=== PATIENT | female | born 1975 | race African-American/Black ===

== ENCOUNTER 2017-04-20 03:14 | Emergency (ER) | payer OTHER ==
[2017-04-20 03:36] VITALS: BMI 23.8
[2017-04-20 03:57] LABS: URINE APPEARANCE CLEAR; URINE BILIRUBIN NEGATIVE (NEGATIVE); URINE BLOOD 2+ (NEGATIVE); URINE COLOR STRAW; URINE GLUCOSE (UA) NEGATIVE (NEGATIVE); URINE KETONE NEGATIVE (NEGATIVE); URINE LEUK ESTERASE NEGATIVE (NEGATIVE); URINE NITRITE NEGATIVE (NEGATIVE); URINE PROTEIN NEGATIVE (NEGATIVE); URINE UROBILINOGEN NEGATIVE mg/dL (0.2-1.0)
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
[2017-04-20 04:07] LABS: URINE MARIJUANA THC POSITIVE ng/ml (CUTOFF=50)
[2017-04-20 04:23] LABS: BASOPHIL 0.6 % (0-2.0); EOSINOPHIL 0.2 % (0-4.5); MCH 29.2 pg (25.7-33.7); MCHC 34.2 g/dl (32.0-36.0); MEAN CELL VOLUME 85.2 fl (80-96); MEAN PLT VOLUME 7.3 fl (7.5-11.1); NEUTROPHILS 73.2 % (42.8-82.8); PLATELET COUNT 256 K/MM3 (134-434); RDW 15.1 % (11.6-15.6); WHITE BLOOD COUNT 10.6 K/mm3 (4.0-10.0)
[2017-04-20 04:35] LABS: INR 1.18 (0.82-1.09)
[2017-04-20 04:46] LABS: ALBUMIN 4.3 g/dl (3.4-5.0); ANION GAP 7 (8-16); BILIRUBIN,TOTAL 0.6 mg/dL (0.2-1.0); CALCIUM 8.8 mg/dL (8.5-10.1); CO2 25 mmol/L (21-32); CREATININE 0.8 mg/dL (0.55-1.02); GLUCOSE,RANDOM 92 mg/dL (74-106); MAGNESIUM 2.1 mg/dL (1.8-2.4); SGOT/AST 29 U/L (15-37); SGPT/ALT 20 U/L (12-78); TOT PROT 7.6 g/dl (6.4-8.2)
[2017-04-20 04:49] LABS: ALK PHOS 73 U/L (45-117); CPK 636 IU/L (26-192); TROPONIN I < 0.02 ng/ml (0.00-0.05)
[2017-04-20 04:58] LABS: ARTERIAL BLD GAS O2 SATURATION 80.1 % (90-98.9); ARTERIAL BLOOD GAS BASE EXCESS 0.1 meq/l (-2-2); ARTERIAL BLOOD GAS HCO3 23.1 meq/L (22-26); ARTERIAL BLOOD GAS PO2 41.1 mmHg (80-100)
[2017-04-20 04:59] LABS: ALLENS TEST POSITIVE; ART PUNCT SITE RIGHT RADIAL; LPM/O2% 21%; METHEMOGLOBIN 0.6 % (0.4-1.5); PT. ON O2? NO; TYPE OF O2 ROOM AIR
[2017-04-20] MEDS ORDERED: POTASSIUM CHLORIDE TABS 20 MEQ TABLET.ER (FP) PO ONE ×2 (04:59→05:35)
[2017-04-20 05:00] LABS: ARTERIAL BLOOD GAS pH 7.45 (7.35-7.45)
[2017-04-20 05:02] LABS: SALICYLATE < 4.0 mg/dl (0.0-30.0)
[2017-04-20 08:22] VITALS: BP 152/92; PULSE 79; TEMP 98
--- NOTE | 2017-04-20 10:52 | EKG ---
Test Reason : Blood Pressure : / mmHG Vent. Rate : 066 BPM Atrial Rate : 066 BPM P-R Int : 080 ms QRS Dur : 084 ms QT Int : 420 ms P-R-T Axes : 006 071 044 degrees QTc Int : 440 ms POOR DATA QUALITY, INTERPRETATION MAY BE ADVERSELY AFFECTED SINUS RHYTHM WITH SHORT NV OTHERWISE NORMAL ECG NO PREVIOUS ECGS AVAILABLE Confirmed by DIANE CAMPUZANO MD ([id number]) on 04/20/2017 10:51:56 AM Referred By: Confirmed By:DIANE CAMPUZANO MD
== END 2017-04-20 08:21 | disposition left against medical advice (07) ==
LOC: JER 03:14
DX: R07.89 Other chest pain (principal); I10 Essential (primary) hypertension; F17.210 Nicotine dependence, cigarettes, uncomplicated
CPT/HCPCS: 36415; 36600; 80053; 80307; 81003; 81015; 82375; 82553; 82803; 83050; 83735; 83880; 84484; 84703; 85025; 85610; 93005; 93010; 99284-25

== ENCOUNTER 2017-04-20 13:44 | Emergency (ER) | payer OTHER ==
[2017-04-20 14:02] VITALS: BMI 24.7
--- NOTE | 2017-04-20 14:43 | PDOC ---
History of Present Illness - General History Source: Patient Exam Limitations: No Limitations - History of Present Illness Initial Comments: 04/20/17 16:26 The patient is a 41 year old female with significant past medical history of hypertension who presents to the ED for lower back pain complaint. Patient states that she fell a week and half ago and was evaluated in [facility] ER and was dx with lumbar sprain. Patient states that the lower back pain is intermittent, with change in intensity. She also reports 1 episode of vomiting today. Patient was seen at [facility] earlier this morning and eloped before being evaluated by psych. Patient presents with a different complaint this afternoon in comparison to this mornings complaint of chest pain and left sided weakness. Patient states that she fell a w Patient states that she is concerned for her safety and feels as if she is not in her right mind. Patient states that her and her daughter have been smoking marijuana with her daughter. She states the last time she smoked was today. She also reports concerns about smoking K2 marijuana since she has been hearing rumors from her dealers that her stuff may be K2. Patient also states that she is concerned about her safety regarding at her apartment she notes that she has been smelling weird gas and is concerned for her well being. Patient is very suspicious and paranoid. The patient denies fever, chills, cough, abdominal pain, and diarrhea. Allergies: NKDA Social History: Current smoker (ppd). Past Surgical History: None reported PCP: n/a <Aislinn Carvajal - Last Filed: 04/20/17 16:43> <Florinda Tapia - Last Filed: 04/20/17 19:08> - General History Source: Patient Exam Limitations: No Limitations <Alena Armstrong - Last Filed: 04/22/17 20:27> - General Chief Complaint: Blood Pressure Problem Stated Complaint: HTN Time Seen by Provider: 04/20/17 14:41 Past History <Aislinn Carvajal - Last Filed: 04/20/17 16:43> <Florinda Tapia - Last Filed: 04/20/17 19:08> - Past Medical History HTN: Yes Psychiatric Problems: Yes - Psycho/Social/Smoking Cessation Hx Anxiety: No Suicidal Ideation: No Smoking History: Current every day smoker Have you smoked in the past 12 months: Yes Number of Cigarettes Smoked Daily: 10 Information on smoking cessation initiated: No Hx Alcohol Use: No Drug/Substance Use Hx: Yes (marijuana.) Substance Use Type: None <Alena Armstrong - Last Filed: 04/22/17 20:27> - Past Medical History Allergies/Adverse Reactions: Allergies Allergy/AdvReac Type Severity Reaction Status Date / Time No Known Allergies Allergy Verified 04/20/17 13:56 Home Medications: Ambulatory Orders Acetaminophen W/ Codeine #3 [Tylenol # 3 -] 1 - 2 tab PO Q6H PRN 04/20/17 Amlodipine Besylate [Norvasc -] 5 mg PO DAILY 04/20/17 Ibuprofen [Motrin -] 600 mg PO TID PRN 04/20/17 Review of Systems - Review of Systems Able to Perform ROS?: Yes Comments:: 04/20/17 16:27 GENERAL/CONSTITUTIONAL: No: fever, chills, weakness, loss of appetite. HEAD, EYES, EARS, NOSE AND THROAT: No: change in vision, ear pain, discharge, sore throat, throat swelling. CARDIOVASCULAR: No: chest pain, lightheadedness, palpitations, syncope RESPIRATORY: No: cough, shortness of breath, wheezing, hemoptysis, stridor. GASTROINTESTINAL: No: nausea, vomiting, abdominal cramping, diarrhea, rectal bleeding, constipation. GENITOURINARY: No: dysuria, hematuria, frequency, urgency, flank pain. MUSCULOSKELETAL: +back pain. No: neck pain, joint pain, muscle swelling or pain SKIN: No: lesions, pallor, rash or easy bruising. NEUROLOGIC: No: headache, vertigo, paresthesias, weakness ENDOCRINE: No: unexplained weight gain or loss HEMATOLOGIC/LYMPHATIC: No: anemia, easy bleeding, swelling nodes <Aislinn Carvajal - Last Filed: 04/20/17 16:43> *Physical Exam - Vital Signs Last Vital Signs Temp Pulse Resp BP Pulse Ox 78 18 198/120 100 04/20/17 13:56 04/20/17 13:56 04/20/17 13:56 04/20/17 13:56 - Physical Exam Comments: 04/20/17 16:43 GENERAL: The patient is in no acute distress. HEAD: Normal with no signs of trauma. EYES: PERRLA, EOMI, sclera anicteric, conjunctiva clear. ENT: Ears normal, nares patent, oropharynx clear without exudates. Moist mucous membranes. NECK: Normal range of motion, supple without lymphadenopathy, JVD, or masses. LUNGS: Breath sounds equal, clear to auscultation bilaterally. No wheezes, and no crackles. HEART:Regular rate and rhythm, normal S1 and S2 without murmur, rub or gallop. ABDOMEN: Soft, nontender, normoactive bowel sounds. No guarding, no rebound. EXTREMITIES: Normal range of motion, no edema. No clubbing or cyanosis. No erythema, or tenderness. NEUROLOGICAL: Cranial nerves II through XII grossly intact. Normal speech. No focal neurological deficits. MUSCULOSKELETAL: No midline tenderness. Back nontender to palpation, no CVA tenderness SKIN: Warm, Dry, normal turgor, no rashes or lesions noted. <Aislinn Carvajal - Last Filed: 04/20/17 16:43> - Vital Signs Last Vital Signs Temp Pulse Resp BP Pulse Ox 98.6 F 64 18 169/101 100 04/20/17 17:46 04/20/17 17:46 04/20/17 13:56 04/20/17 17:46 04/20/17 17:46 <Florinda Tapia - Last Filed: 04/20/17 19:08> - Vital Signs Last Vital Signs Temp Pulse Resp BP Pulse Ox 78 18 198/120 100 04/20/17 13:56 04/20/17 13:56 04/20/17 13:56 04/20/17 13:56 <Alena Armstrong - Last Filed: 04/22/17 20:27> Heart Score/ECG Review #1 ECG reviewed & interpreted by me at: 16:10 04/20/17 16:10 Twelve-lead EKG was performed and reviewed by me. There is normal sinus rhythm with a normal rate of 74 bpm. The axis is normal. The intervals are normal - pr: 96ms, QRS:96ms, QTc:463ms. There are no ST elevations or depressions. T wave upright <Alena Armstrong - Last Filed: 04/22/17 20:27> ED Treatment Course - LABORATORY CBC & Chemistry Diagram: 04/20/17 16:01 04/20/17 16:01 - ADDITIONAL ORDERS Additional order review: 04/20/17 16:01 RBC 4.53 MCV 85.4 MCHC 33.4 RDW 15.0 MPV 7.6 Neutrophils % 68.1 Lymphocytes % 22.4 D Monocytes % 8.7 Eosinophils % 0.3 Basophils % 0.5 <Aislinn Carvajal - Last Filed: 04/20/17 16:43> - LABORATORY CBC & Chemistry Diagram: 04/20/17 16:01 04/20/17 16:01 - ADDITIONAL ORDERS Additional order review: Laboratory Results 04/20/17 16:01 Sodium 138 Potassium 3.3 L Chloride 103 Carbon Dioxide 26 Anion Gap 9 BUN 7 Creatinine 0.8 Creat Clearance w eGFR > 60 Random Glucose 82 Calcium 9.4 Total Bilirubin 0.6 AST 30 ALT 21 Alkaline Phosphatase 73 Creatine Kinase 710 H Creatine Kinase Index 0.4 CK-MB (CK-2) 3.419 Troponin I < 0.02 Total Protein 7.5 Albumin 4.2 04/20/17 16:01 RBC 4.53 MCV 85.4 MCHC 33.4 RDW 15.0 MPV 7.6 Neutrophils % 68.1 Lymphocytes % 22.4 D Monocytes % 8.7 Eosinophils % 0.3 Basophils % 0.5 - Medications Given in the ED: ED Medications Discontinued Medications Generic Name Dose Route Start Last Admin Trade Name Freq PRN Reason Stop Dose Admin Amlodipine Besylate 5 mg 04/20/17 16:40 04/20/17 17:03 Norvasc - PO 04/20/17 16:41 5 mg ONCE ONE Administration <Florinda Tapia - Last Filed: 04/20/17 19:08> - LABORATORY CBC & Chemistry Diagram: 04/20/17 16:01 04/20/17 16:01 <Alena Armstrong - Last Filed: 04/22/17 20:27> Medical Decision Making - Medical Decision Making 04/20/17 14:42 A portion of this note was documented by scribe services under my direction. I have reviewed the details of the note, within reason, and agree with the documentation with the following case summary and management plan written by me. Nursing documentation reviewed and incorporated into medical decision making This patient returns to the ER with complaints of tachycardia and anxiety and paranoia She complains of palpitations Her mood is noted to be labile Plan initially was to have psych see her in the ER, however, she and her daughter eloped Call placed to psych consult for evaluation Pt and daughter admit to smoking marijuana from a new source, which that find questionably reliable Presentation is most likely related to her drug use, unlikely new psychiatric diagnosis however, will consult psych for their input Pt signed out to Dr Tapia <Alena Armstrong - Last Filed: 04/22/17 20:27> *DC/Admit/Observation/Transfer - Attestations Scribe Attestion: 04/20/17 16:27 Documentation prepared by SRIRAM Clemens, acting as medical imaging tech for Alena Armstrong MD. <Aislinn Carvajal - Last Filed: 04/20/17 16:43> - Discharge Dispostion Admit: No <Florinda Tapia - Last Filed: 04/20/17 19:08> <Alena Armstrong - Last Filed: 04/22/17 20:27> Diagnosis at time of Disposition: Substance abuse, Hypertension - Discharge Dispostion Disposition: HOME - Patient Instructions Printed Discharge Instructions: DI for High Blood Pressure Additional Instructions: you should avoid smoking weed . continue to take your blood pressure medication. return for any concerns or problems or thoughts of self harm. follow up with your regular doctor.
[2017-04-20 16:06] LABS: BASOPHIL 0.5 % (0-2.0); EOSINOPHIL 0.3 % (0-4.5); MCH 28.5 pg (25.7-33.7); MCHC 33.4 g/dl (32.0-36.0); MEAN CELL VOLUME 85.4 fl (80-96); MEAN PLT VOLUME 7.6 fl (7.5-11.1); NEUTROPHILS 68.1 % (42.8-82.8); PLATELET COUNT 242 K/MM3 (134-434); WHITE BLOOD COUNT 9.2 K/mm3 (4.0-10.0)
[2017-04-20] MEDS ORDERED: amLODIPine BESYLATE 5 MG TABLET (FP) PO ONE (16:40)
[2017-04-20 16:46] LABS: ALBUMIN 4.2 g/dl (3.4-5.0); ANION GAP 9 (8-16); BILIRUBIN,TOTAL 0.6 mg/dL (0.2-1.0); CALCIUM 9.4 mg/dL (8.5-10.1); CO2 26 mmol/L (21-32); CREATININE 0.8 mg/dL (0.55-1.02); GLUCOSE,RANDOM 82 mg/dL (74-106); SGOT/AST 30 U/L (15-37); SGPT/ALT 21 U/L (12-78); TOT PROT 7.5 g/dl (6.4-8.2)
[2017-04-20 16:49] LABS: ALK PHOS 73 U/L (45-117); CPK 710 IU/L (26-192); TROPONIN I < 0.02 ng/ml (0.00-0.05)
[2017-04-20] MEDS ORDERED: amLODIPine BESYLATE 5 MG TABLET (FP) ONE (16:56)
[2017-04-20 17:47] VITALS: PULSE 64; TEMP 98.6
--- NOTE | 2017-04-20 19:06 | CON.PSY ---
Psychiatry Consult Chief Complaint: Asked to see this patient, a 45 year old female who came to ER for low back pain and hypertension. During the admission, she expressed ' feeling weird' after smoking street marijuana with tylenol #3 History of Present Problem: Patient was seen in the ER. Recent chart and medical records reviewed Labs and VS reviewed Progress notes both medical and nursing reviewed Patient was found lying in a stretcher in no distress. She relates that she moved to [place] from [place], [place] July 2016. She also states that she lived in [place] at one time where she got medically approved marijuana ( not sure why)? Ms. Carter admitted that she took opiods and marijuana and felt 'weird' after that . Not sure if it was synthetic marijuana or marijuana laced with other substances. She denies past psychiatric hospitalizations, depression, psychoses , suicidal/homicidal intent in the past. According to her, she has no psychiatric history. Her only complaint is that since she moved to [place] she feels alone and disconnected - Previous Psychiatric Treatment Outpatient: None Inpatient: None - Allergies Allergies: Allergies Allergy/AdvReac Type Severity Reaction Status Date / Time No Known Allergies Allergy Verified 04/20/17 13:56 - Current Living Status Usual Living Arrangement: Other (with grown daughter) - Current Mental Status Evaluation Appearance: Other (approriately dressed in hospital gown - somewhat disheveled) Attitude: Cooperative - Affect Affect: Full Range Appropriateness: Appropriate to Content - Mood Mood: Anxious - Speech/Language Expressive: Coherent Receptive: Age Appropriate Comprehension of Spoken Words - Psychomotor Activity Psychomotor Activity: Normal - Thought Process Thought Process: Intact - Thought Content Hallucinations: Absent Delusions: Absent - Self Perception Self Perception: No Impairment - Cognition Orientation: Time, Person, Place Memory, Immediate Recall: Intact Memory, Short Term: 3/3 Memory, Remote: Intact - Concentration Simple Calculations Intact: Yes - Abstraction Proverb Interpretation: Intact Judgement: Minimally Impaired - Insight Insight: Impaired - Impulse Control Impulse Control: Minimally Impaired - Suicidal Ideation Suicidal Ideation: No Assessment/Plan Patient is not psychotic at this time She did admit to mixing drugs- opiods and marijuana/ktu? and attributes her ' weird feeling ' to this mixture. Urine reflects marijuana and opiates, Plan Patient is psychiatrically cleared to be discharged [facility]
--- NOTE | 2017-04-20 19:08 | PDOC ---
*Physical Exam - Vital Signs Last Vital Signs Temp Pulse Resp BP Pulse Ox 98.6 F 64 18 169/101 100 04/20/17 17:46 04/20/17 17:46 04/20/17 13:56 04/20/17 17:46 04/20/17 17:46 ED Treatment Course - LABORATORY CBC & Chemistry Diagram: 04/20/17 16:01 04/20/17 16:01 - ADDITIONAL ORDERS Additional order review: Laboratory Results 04/20/17 16:01 Sodium 138 Potassium 3.3 L Chloride 103 Carbon Dioxide 26 Anion Gap 9 BUN 7 Creatinine 0.8 Creat Clearance w eGFR > 60 Random Glucose 82 Calcium 9.4 Total Bilirubin 0.6 AST 30 ALT 21 Alkaline Phosphatase 73 Creatine Kinase 710 H Creatine Kinase Index 0.4 CK-MB (CK-2) 3.419 Troponin I < 0.02 Total Protein 7.5 Albumin 4.2 04/20/17 16:01 RBC 4.53 MCV 85.4 MCHC 33.4 RDW 15.0 MPV 7.6 Neutrophils % 68.1 Lymphocytes % 22.4 D Monocytes % 8.7 Eosinophils % 0.3 Basophils % 0.5 - Medications Given in the ED: ED Medications Discontinued Medications Generic Name Dose Route Start Last Admin Trade Name Freq PRN Reason Stop Dose Admin Amlodipine Besylate 5 mg 04/20/17 16:40 04/20/17 17:03 Norvasc - PO 04/20/17 16:41 5 mg ONCE ONE Administration Medical Decision Making - Medical Decision Making 04/20/17 19:06 41 yo F with no pmhx here with concerns for back pain, and earlier in the department with concerns for paranoid delusions prompting psych eval. pt had eloped, and then returned later in day with daughter c/o back pain. pt does report smoking weed earlier today and took tylenol #3 which she thought may be causing her bizarre behavior. pt was seen by psychiatry and felt to be stable for dc. was given bp meds amlodipine 5 mg in ed. ed home.
[2017-04-20 19:24] VITALS: BP 140/89
--- NOTE | 2017-04-21 12:54 | EKG ---
Test Reason : Blood Pressure : / mmHG Vent. Rate : 074 BPM Atrial Rate : 074 BPM P-R Int : 096 ms QRS Dur : 096 ms QT Int : 418 ms P-R-T Axes : 065 065 040 degrees QTc Int : 463 ms SINUS RHYTHM WITH SHORT OR POSSIBLE LEFT ATRIAL ENLARGEMENT RSR' OR QR PATTERN IN V1 SUGGESTS RIGHT VENTRICULAR CONDUCTION DELAY WHEN COMPARED WITH ECG OF 20-APR-2017 04:13, NO SIGNIFICANT CHANGE WAS FOUND Confirmed by MD ELISA, ELLA ([id number]) on 04/21/2017 12:53:53 PM Referred By: Confirmed By:ELLA PÉREZ MD
== END 2017-04-20 19:24 | disposition home or self-care (01) ==
LOC: JER 13:44
DX: I10 Essential (primary) hypertension (principal); F12.90 Cannabis use, unspecified, uncomplicated; F17.210 Nicotine dependence, cigarettes, uncomplicated; F99 Mental disorder, not otherwise specified
CPT/HCPCS: 36415; 80053; 82553; 84484; 85025; 93005; 93010; 99283-25